=== PATIENT | male | born 2005 | race Caucasian/White ===

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

== ENCOUNTER 2024-07-29 16:26 | Emergency (ER) | payer OTHER, BC ==
[2024-07-29 17:17] VITALS: TEMP 97.9
[2024-07-29] MEDS ORDERED: XYLOCAINE VISCOUS 2% 15 ML CUP ONE (17:24)
[2024-07-29] MEDS ORDERED: PROTONIX 40 MG IV IV ONE (17:24)
[2024-07-29] MEDS ORDERED: Sodium Chloride 0.9% 1000 ML 1,000 ML ONE (17:25)
[2024-07-29] MEDS ORDERED: MAALOX ES 30 ML UNIT DOSE ONE (17:25)
[2024-07-29] MEDS: GI COCKTAIL 45 ML (Maalox/Lidocaine) PO ONE (17:29)
[2024-07-29] MEDS: PROTONIX 40 MG IV IV ONE (17:29)
[2024-07-29] MEDS: Sodium Chloride 0.9% 1000 ML 1,000 ML IV STA (17:29)
[2024-07-29 17:47] LABS: Absolute Neutrophil Ct (ANC) 7.31 x10^3/uL (1.78-5.38); BASOPHIL % 0.3 % (0.2-1.2); Basophil (Absolute #) 0.03 x10^3/uL (0.01-0.08); Eosinophil % 0.3 % (0.8-7.0); Eosinophil (Absolute #) 0.03 x10^3/uL (0.04-0.54); Hematocrit 46.2 % (40.1-51.0); Hemoglobin 16.1 g/dL (13.7-17.5); IMMATURE GRAN # 0.03 x10^3u/L (0.001-0.031); IMMATURE GRAN % 0.3 % (0.001-0.429); Lymphocytes % 11.8 % (21.8-53.1); Mean Cell Volume 89.4 fL (79.0-92.2); Mean Corpuscular Hemoglobin 31.1 pg (25.7-32.2); Mean Corpuscular Hgb Concent. 34.8 g/dL (32.3-36.5); Mean Platelet Volume 9.3 fL (9.4-12.4); Monocyte (Absolute #) 0.81 x10^3/uL (0.30-0.82); Monocytes % 8.7 % (5.3-12.2); Neutrophil % 78.6 % (34.0-67.9); Platelet Count 309 x10^3/uL (163-337); Red Blood Count 5.17 x10^6/uL (4.63-6.08); Red Cell Distribution Width 12.7 % (11.6-14.4); White Blood Count 9.3 x10^3/uL (4.23-9.07)
--- NOTE | 2024-07-29 18:09 | ERPHSYRPT ---
<MAYUR HESS - Last Filed: 07/29/24 18:05> - History of Present Illness Time Seen by Provider: 07/29/24 16:33 Historian: patient, family Exam Limitations: no limitations Patient Subjective Stated Complaint: Tachycardia Triage Nursing Assessment: Patient ambulated back to ED and transferred self to bed. Patient A+O X 3. Patient's skin pink, warm and dry. 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 He stated he could feel his heart beating fast patient was told to go to EMT for assessment when he started walking you became lightheaded and SOB then sat 45 minutes. Patient states he was getting very dizzy and kept wanting to pass out. Patient states he has chest pain to mid sternum into right side of ribs and mid back pain constant stabbing 6/10. Physician History: 19-year-old with history of heavy caffeine use and moderate alcohol consumption until a week ago when he started to feel dizzy lightheaded, tachycardia. He was evaluated at [facility] with negative workup, was prescribed Nexium but patient continued to have symptoms. Patient reports he gets short of breath with activity and also having cough and noticed some blood earlier today. Pain is substernal moderate intensity, continuous with no significant aggravating or relieving factors. Denies any fever or chills. Patient was also taking testosterone shots for building muscle mass. Allergies/Adverse Reactions: No Known Drug Allergies Allergy (Verified 07/29/24 16:40) Home Medications: Sertraline HCl 50 mg [Zoloft 50 mg Tablet] 1 tab PO DAILY 07/29/24 [History] Hx Influenza Vaccination/Date Given: No Hx Pneumococcal Vaccination/Date Given: No Travel Risk - International Travel Have you traveled outside of the country in past 3 weeks: No - Emerging Infectious Disease Are you exhibiting symptoms associated with any current EIDs: No - Review of Systems Constitutional: Fatigue, Weakness Eyes: No Symptoms Ears, Nose, & Throat: No Symptoms Respiratory: Cough, Dyspnea, Dyspnea on Exertion (CRUZ) Cardiac: Chest Pain, Palpitations Abdominal/Gastrointestinal: No Symptoms Genitourinary Symptoms: No Symptoms Skin: No Symptoms Neurological: No Symptoms Psychological: Anxiety Hematologic/Lymphatic: No Symptoms Immunological/Allergic: No Symptoms - Past Medical History Pertinent Past Medical History: Yes Neurological History: No Pertinent History Cardiac History: No Pertinent History Respiratory History: No Pertinent History Endocrine Medical History: No Pertinent History Musculoskeletal History: No Pertinent History - Past Surgical History Past Surgical History: No - Social History Smoking Status: Never smoker Exposure to second hand smoke: Yes Drug Use: none Patient Lives Alone: No - Social Determinants of Health Will the patient participate in the screening: Yes Do you worry about a steady place to live?: No Do you have any problems with any of the following?: No known problems In the past 12 months,have you had to go without utilities?: No Transportation Issues: No Has anyone in your support network made you feel unsafe?: No Have you or anyone in your house had to go without enough: No - Physical Exam General Appearance: no apparent distress, alert, anxiety Eye Exam: PERRL/EOMI Ears, Nose, Throat Exam: normal ENT inspection Neck Exam: normal inspection, non-tender, supple, full range of motion Respiratory Exam: normal breath sounds, lungs clear Cardiovascular Exam: regular rate/rhythm, normal heart sounds Gastrointestinal/Abdomen Exam: soft, normal bowel sounds, No tenderness Back Exam: normal inspection, normal range of motion Extremity Exam: normal inspection, normal range of motion Neurologic Exam: alert, oriented x 3, cooperative, director hedis II-XII nml as tested, nml cerebellar function, nml station & gait, sensation nml, No normal mood/affect, No motor deficits Skin Exam: normal color SpO2 Interpretation: normal SpO2: 100 O2 Delivery: Room Air - Course EKG Interpreted by Me: RATE, Sinus Rhythm, NORMAL AXIS, NORMAL INTERVALS, NORMAL QRS - Departure Clinical Impression: Dizziness, SOB (shortness of breath) Condition: Stable Referrals: LILLIAN BLAIR [employer]ET[employer] SPECIALIST [Primary Care Provider] - Follow up/PCP as directed Additional Instructions: Discharge/Care Plan ESDRAS KATZ was seen on 07/29/24 in the Emergency Room. The patient was counseled regarding Diagnosis,Lab results, Imaging studies, need for follow up and when to return to the Emergency Room. Prescriptions given: Discharge Note I have spoken with the patient and/or caregivers. I have explained the patient's condition, diagnosis and treatment plan based on the information available to me at this time. I have answered the patient's and/or caregiver's questions and addressed any concerns. The patient and/or caregivers have as good understanding of the patient's diagnosis, condition and treatment plan as can be expected at this point. The vital signs have been stable. The patient's condition is stable and appropriate for discharge from the emergency department. The patient will pursue further outpatient evaluation with the primary care physician or other designated or consulting physician as outlined in the dischar ge instructions. The patient and/or caregivers are agreeable to this plan of care and follow-up instructions have been explained in detail. The patient and/or caregivers have received these instruction. The patient/and or caregivers are aware that any significant change in condition or worsening of symptoms should prompt an immediate return to this or the closest emergency department or call 911. Forms: Work/School Release Form <MARCO A SEQUEIRA - Last Filed: 07/29/24 20:34> - History of Present Illness Aspirin Treatment Today: no aspirin today - Nursing Vital Signs Nursing Vital Signs: Initial Vital Signs Temperature 97.9 F 07/29/24 16:54 Pulse Rate 95 H 07/29/24 16:54 Respiratory Rate 20 07/29/24 16:54 Blood Pressure 146/97 07/29/24 16:54 O2 Sat by Pulse Oximetry 100 07/29/24 16:54 Pain Scale Pain Intensity 7 - Course Nursing assessment & vital signs reviewed: Yes - CT Exams Abdomen/Pelvis CT Interpretation: Tele-radiologist Report (No acute findings) Chest CT Interpretation: Tele-radiologist Report (No acute findings) Ordered Tests: Active Orders 24 hr Category Date Time Status [place] Program Coordinator STAT Care 07/29/24 17:15 Active EKG-ER Only STAT Care 07/29/24 17:15 Active IV Insertion STAT Care 07/29/24 17:15 Active ABDOMEN AND PELVIS W/0 CONTRAS [CT] Stat Exams 07/29/24 19:12 Taken CHEST WITH CONTRAST [CT] Stat Exams 07/29/24 17:16 Taken CBC W DIFF Stat Lab 07/29/24 17:30 Completed CK-Creatinine Phosphokinase Stat Lab 07/29/24 17:30 Completed CMP Stat Lab 07/29/24 17:30 Completed LIPASE Stat Lab 07/29/24 Completed MAG [MAGNESIUM] Stat Lab 07/29/24 Completed NT PRO BNPII Stat Lab 07/29/24 17:30 Completed TROPONIN Q4H Lab 07/29/24 17:30 Completed TROPONIN Q4H Lab 07/29/24 21:15 Ordered TROPONIN Q4H Lab 07/30/24 01:15 Ordered TSH [TSH, 3RD Generation] Stat Lab 07/29/24 17:30 Completed Urine Triage Profile Stat Lab 07/29/24 17:21 Completed Medication Summary Discontinued Medications Generic Name Dose Route Start Last Admin Trade Name Bebeto PRN Reason Stop Dose Admin Al Hydrox/Mg Hydrox/Simethicone Confirm 07/29/24 17:25 Mag Hydrox/Al Hydrox/Simeth 30 Ml Udcup Administered 07/29/24 17:26 Dose 30 ml .ROUTE .STK-MED ONE Sodium Chloride 1,000 mls @ 999 mls/hr 07/29/24 17:15 07/29/24 18:30 Sodium Chloride 0.9% 1000 Ml IV 07/29/24 18:15 Infused .Q1H1M STA Infusion Sodium Chloride Confirm 07/29/24 17:25 Sodium Chloride 0.9% 1000 Ml Administered 07/29/24 17:26 Dose 1,000 mls @ ud .ROUTE .STK-MED ONE Lidocaine HCl Confirm 07/29/24 17:24 Lidocaine Hcl 2% Viscous 15 Ml Udcup Administered 07/29/24 17:25 Dose 15 ml .ROUTE .STK-MED ONE Magnesium Hydroxide 45 ml 07/29/24 17:16 07/29/24 17:29 Mag Hydrx/Alum Hyd/Simeth/Lido 45 Ml Bottle PO 07/29/24 17:17 45 ml STAT ONE Administration Morphine Sulfate 4 mg 07/29/24 19:19 07/29/24 19:20 Morphine Sulfate 4 Mg/Ml Injection IV 07/29/24 19:20 4 mg STAT ONE Administration Morphine Sulfate Confirm 07/29/24 19:19 Morphine Sulfate 4 Mg/Ml Injection Administered 07/29/24 19:20 Dose 4 mg .ROUTE .STK-MED ONE Ondansetron HCl 4 mg 07/29/24 19:19 07/29/24 19:20 Ondansetron Hcl 4 Mg/2 Ml Vial IV 07/29/24 19:20 4 mg STAT ONE Administration Ondansetron HCl Confirm 07/29/24 19:19 Ondansetron Hcl 4 Mg/2 Ml Vial Administered 07/29/24 19:20 Dose 4 mg .ROUTE .STK-MED ONE Pantoprazole Sodium 40 mg 07/29/24 17:16 07/29/24 17:29 Pantoprazole 40 Mg Vial IV 07/29/24 17:17 40 mg STAT ONE Administration Pantoprazole Sodium Confirm 07/29/24 17:24 Pantoprazole 40 Mg Vial Administered 07/29/24 17:25 Dose 40 mg IV .[facility] ONE Lab/Rad Data: Laboratory Result Diagrams 07/29/24 17:30 07/29/24 17:30 Laboratory Results 07/29/24 07/29/24 07/29/24 Range/Units Unknown 17:30 17:30 WBC (4.23-9.07) x10^3/uL RBC (4.63-6.08) x10^6/uL Hgb (13.7-17.5) g/dL Hct (40.1-51.0) % MCV (79.0-92.2) fL MCH (25.7-32.2) pg MCHC (32.3-36.5) g/dL RDW (11.6-14.4) % Plt Count (163-337) x10^3/uL MPV (9.4-12.4) fL Gran % (34.0-67.9) % Immature Gran % (Auto) (0.001-0.429) % Nucleat RBC Rel Count (0.00-0.2) % Eos # (Auto) (0.04-0.54) x10^3/uL Immature Gran # (Auto) (0.001-0.031) x10^3u/L Absolute Lymphs (auto) (1.32-3.57) x10^3/uL Absolute Monos (auto) (0.30-0.82) x10^3/uL Absolute Nucleated RBC (0.00-0.012) x10^3u/L Lymphocytes % (21.8-53.1) % Monocytes % (5.3-12.2) % Eosinophils % (0.8-7.0) % Basophils % (0.2-1.2) % Absolute Granulocytes (1.78-5.38) x10^3/uL Basophils # (0.01-0.08) x10^3/uL Sodium (135-145) mmol/L Potassium (3.5-5.1) mmol/L Chloride (98-107) mmol/L Carbon Dioxide (22-30) mmol/L Anion Gap (5-15) MEQ/L BUN (9-20) mg/dL Creatinine (0.66-1.25) mg/dL Estimated GFR ML/MIN Glucose (74-106) mg/dL Calcium (8.4-10.2) mg/dL Magnesium 2.0 (1.6-2.3) mg/dL Total Bilirubin (0.2-1.3) mg/dL AST (17-59) U/L ALT (0-50) U/L Alkaline Phosphatase (38-126) U/L Creatine Kinase (55-170) U/L Troponin I (0.000-0.033) ng/mL NT-Pro-B Natriuret Pep < 20.0 (<300) pg/mL Serum Total Protein (6.3-8.2) g/dL Albumin (3.5-5.0) g/dL Lipase 148 (23-300) U/L TSH 3rd Generation 1.122 (0.470-4.680) mIU/L Urine Opiates Level (NEGATIVE) Ur Methadone (NEGATIVE) Urine Barbiturates (NEGATIVE) Ur Phencyclidine (PCP) (NEGATIVE) Urine Amphetamine (NEGATIVE) U Benzodiazepine Level (NEGATIVE) Urine Cocaine (NEGATIVE) Urine Marijuana (THC) (NEGATIVE) 07/29/24 07/29/24 07/29/24 Range/Units 17:30 17:30 17:21 WBC 9.3 H (4.23-9.07) x10^3/uL RBC 5.17 (4.63-6.08) x10^6/uL Hgb 16.1 (13.7-17.5) g/dL Hct 46.2 (40.1-51.0) % MCV 89.4 (79.0-92.2) fL MCH 31.1 (25.7-32.2) pg MCHC 34.8 (32.3-36.5) g/dL RDW 12.7 (11.6-14.4) % Plt Count 309 (163-337) x10^3/uL MPV 9.3 L (9.4-12.4) fL Gran % 78.6 H (34.0-67.9) % Immature Gran % (Auto) 0.3 (0.001-0.429) % Nucleat RBC Rel Count 0.0 (0.00-0.2) % Eos # (Auto) 0.03 L (0.04-0.54) x10^3/uL Immature Gran # (Auto) 0.03 (0.001-0.031) x10^3u/L Absolute Lymphs (auto) 1.10 L (1.32-3.57) x10^3/uL Absolute Monos (auto) 0.81 (0.30-0.82) x10^3/uL Absolute Nucleated RBC 0.00 (0.00-0.012) x10^3u/L Lymphocytes % 11.8 L (21.8-53.1) % Monocytes % 8.7 (5.3-12.2) % Eosinophils % 0.3 L (0.8-7.0) % Basophils % 0.3 (0.2-1.2) % Absolute Granulocytes 7.31 H (1.78-5.38) x10^3/uL Basophils # 0.03 (0.01-0.08) x10^3/uL Sodium 139 (135-145) mmol/L Potassium 3.9 (3.5-5.1) mmol/L Chloride 104 (98-107) mmol/L Carbon Dioxide 22 (22-30) mmol/L Anion Gap 16.9 H (5-15) MEQ/L BUN 18 (9-20) mg/dL Creatinine 1.24 (0.66-1.25) mg/dL Estimated GFR 84.8 ML/MIN Glucose 96 (74-106) mg/dL Calcium 9.2 (8.4-10.2) mg/dL Magnesium (1.6-2.3) mg/dL Total Bilirubin 0.60 (0.2-1.3) mg/dL AST 34 (17-59) U/L ALT 25 (0-50) U/L Alkaline Phosphatase 72 (38-126) U/L Creatine Kinase 312 H (55-170) U/L Troponin I < 0.012 (0.000-0.033) ng/mL NT-Pro-B Natriuret Pep (<300) pg/mL Serum Total Protein 8.1 (6.3-8.2) g/dL Albumin 4.9 (3.5-5.0) g/dL Lipase (23-300) U/L TSH 3rd Generation (0.470-4.680) mIU/L Urine Opiates Level NEGATIVE (NEGATIVE) Ur Methadone NEGATIVE (NEGATIVE) Urine Barbiturates NEGATIVE (NEGATIVE) Ur Phencyclidine (PCP) NEGATIVE (NEGATIVE) Urine Amphetamine NEGATIVE (NEGATIVE) U Benzodiazepine Level NEGATIVE (NEGATIVE) Urine Cocaine NEGATIVE (NEGATIVE) Urine Marijuana (THC) NEGATIVE (NEGATIVE) - Progress Progress: improved Air Movement: good Progress Note: 19-year-old male presents to emergency department for evaluation of shortness of breath dizziness. Patient evaluated by Dr. Hess. Workup completed. Patient endorsed to Dr. Sequeira at approximately [address] Sequeira advised to follow-up in pending CAT scan and to discharge if negative. CAT scan chest was ordered by Dr. Hess and was negative. At the change of shift I evaluated patient. Patient expressed some discomfort at the right upper quadrant so I added a CT abdomen pelvis. That resulted as negative as well. Patient resting comfortably. Vital stable. No active pain. Patient states he is ready for discharge. He agrees to follow-up with his primary care doctor within 48 hours for reevaluation. Work note provided. Patient voices no other complaints or concerns at this time. Portions of this note were created with voice recognition technology. There may be grammatical, spelling, punctuation or sound alike errors Complexity of problem addressed is moderate acute complicated. No critical care time. Complex of data reviewed and analyzed is moderate. Test ordered chest reviewed results analyzed and correlated clinically with history and physical exam. Risk of complication and or risk of morbidity/mortality of patient management is low. Vital stable. Time spent to discharge patient approximately 15 minutes. Plan of care established for shared decision making. No social determinants of health present to be follow-up. Portions of this note were created with voice recognition technology. There may be grammatical, spelling, punctuation or sound alike errors 07/29/24 20:31 Blood Culture(s) Obtained: No Antibiotics given: No Counseled pt/family regarding: lab results, diagnosis, need for follow-up, rad results - Departure Departure Disposition: Home Critical Care Time: No
[2024-07-29 18:12] LABS: Amphetamine,Urine NEGATIVE (NEGATIVE); Barbiturate,Urine NEGATIVE (NEGATIVE); Benzodiazepine,Urine NEGATIVE (NEGATIVE); Cocaine,Urine NEGATIVE (NEGATIVE); Methadone,Urine NEGATIVE (NEGATIVE); Opiate,Urine NEGATIVE (NEGATIVE); PCP,Urine NEGATIVE (NEGATIVE); THC,Urine NEGATIVE (NEGATIVE)
[2024-07-29 18:20] LABS: ALBUMIN 4.9 g/dL (3.5-5.0); ALKALINE PHOSPHATASE 72 U/L (38-126); ANION GAP 16.9 MEQ/L (5-15); BLOOD UREA NITROGEN 18 mg/dL (9-20); CHLORIDE 104 mmol/L (98-107); CK-Creatinine Phosphokinase 312 U/L (55-170); Calcium 9.2 mg/dL (8.4-10.2); Carbon Dioxide 22 mmol/L (22-30); Creatinine 1 1.24 mg/dL (0.66-1.25); EST GLOMERULAR FILTRATION RATE 84.8 ML/MIN; Glucose 96 mg/dL (74-106); Potassium 3.9 mmol/L (3.5-5.1); SGOT/AST 34 U/L (17-59); SGPT/ALT 25 U/L (0-50); SODIUM 139 mmol/L (135-145); TROPONIN < 0.012 ng/mL (0.000-0.033); Total Protein 8.1 g/dL (6.3-8.2)
[2024-07-29] MEDS ORDERED: Zofran 4 MG/2 ML VIAL ONE (19:19)
[2024-07-29] MEDS ORDERED: MORPHINE SULFATE 4 MG INJ ONE (19:19)
[2024-07-29] MEDS: MORPHINE SULFATE 4 MG INJ IV ONE (19:20)
[2024-07-29] MEDS: Zofran 4 MG/2 ML VIAL IV ONE (19:20)
[2024-07-29 20:17] VITALS: O2SAT 98
[2024-07-29 20:33] VITALS: BP 131/80; PULSE 74; RESP 17
--- NOTE | 2024-07-30 08:38 | XRAY ---
Indication: Chest pain. Hemoptysis. Multiple contiguous axial images obtained through the chest using 80 cc Isovue 370 contrast and PE protocol. Comparison: None Suboptimal opacification pulmonary arteries. No obvious pulmonary embolus. Heart not enlarged. Aorta is normal in course and caliber. Small subcarinal and right hilar calcified nodes. No pathologic mediastinal/hilar lymphadenopathy. Lungs inflated and clear. Bony thorax intact. CT abdomen/pelvis reported separately. Impression: Negative pulmonary embolus. No acute cardiopulmonary abnormalities. Incidental old granulomatous disease.
--- NOTE | 2024-07-30 08:42 | XRAY ---
Indication: Right upper quadrant abdominal pain. Multiple contiguous axial images obtained through the abdomen and pelvis without contrast. Comparison: None CT PE exam reported separately. Noncontrasted stomach and bowel loops appear nonobstructed. Appendix not visualized. Mild scattered colonic fecal debris greatest and right hemicolon. Contrast in the system from same day CT pulmonary embolus exam. No free fluid/air. Remaining liver, gallbladder, pancreas, spleen, adrenal glands, kidneys, ureters, bladder, and aorta are unremarkable. Osseous structures intact. No ventral or inguinal hernias. Impression: Mild fecal stasis. Remaining CT abdomen/pelvis without contrast exam is negative.
== END 2024-07-29 20:39 | disposition home or self-care (01) ==
LOC: ED 16:26
DX: R42 Dizziness and giddiness (principal); R06.02 Shortness of breath; R00.0 Tachycardia, unspecified; R05.1 Acute cough; R07.9 Chest pain, unspecified; Z79.899 Other long term (current) drug therapy
CPT/HCPCS: 36000; 36415; 71260; 74176; 80053; 80307; 82550; 83690; 83735; 83880; 84443; 84484; 85025; 93005; 93041; 96374; 96375; 99284; J2270; J2405; A9270-GY

== ENCOUNTER 2024-08-26 06:52 | Day surgery (SDC) | payer OTHER, BC ==
[2024-08-26] MEDS: Lactated Ringers 1,000 ML IV SCH (07:00)
[2024-08-26 07:16] VITALS: RESP 18
[2024-08-26] MEDS ORDERED: Versed 2 MG/2 ML Injection ONE (08:18)
[2024-08-26] MEDS ORDERED: Xylocaine-Mpf 2% 5 Ml Vial ONE (08:21)
[2024-08-26] MEDS ORDERED: DIPRIVAN 200 MG/20 ML IV ONE ×2 (08:21→08:32)
[2024-08-26 09:03] VITALS: O2SAT 98
[2024-08-26 09:13] VITALS: BP 118/94; PULSE 64; TEMP 97.7
--- NOTE | 2024-08-28 10:27 | OP ---
SURGERY DATE/TIME: 08/26/2024 [id number] PREOPERATIVE DIAGNOSES: 1) Hematochezia. 2) Gastroesophageal reflux disease. POSTOPERATIVE DIAGNOSES: 1) Normal esophagogastroduodenoscopy. 2) Normal colon. PROCEDURES: 1) Esophagogastroduodenoscopy. 2) Colonoscopy. SURGEON: Monty Chong MD ANESTHESIA: MAC, by Juliano Ellis CRNA ESTIMATED BLOOD LOSS: None. SPECIMENS: None. DESCRIPTION OF PROCEDURE AND FINDINGS: After informed written consent was obtained, the patient was taken to the endoscopy suite. He was placed in the left lateral decubitus position and a bite block was inserted. The anesthetic was titrated to the desired level of consciousness. The endoscope was inserted in the posterior oropharynx. Under direct visualization, the esophagus was traversed. The mucosa of the esophagus appeared normal, upon entry into the stomach, there was normal rugae of the gastric mucosa. No obvious areas of bleeding, ulceration, or any changes were seen. Pylorus was traversed, but the duodenum had a normal appearance as well. Upon withdrawal again, all mucosal structures appeared normal. Scope was removed, and the scopes were switched. Digital rectal exam showed normal sphincter tone and no internal lesions. The scope was inserted in the rectum, and sequentially the entire colonic mucosa was traversed. Level of the cecum was reached and verified under direct visualization of the ileocecal valve. Upon withdrawal, careful mucosal inspection revealed no colonic mucosal abnormalities. There were no areas of bleeding, no ulcerations, no polyps or lesions were encountered. Prior to withdrawal, retroflexion was performed and showed no internal lesions. The scope was removed, and patient was transferred to the recovery room in good condition.
== END 2024-08-26 09:15 | disposition home or self-care (01) ==
LOC: SDC 06:52
PROVIDERS: ATTEND Family Medicine
DX: K92.1 Melena (principal); K21.9 Gastro-esophageal reflux disease without esophagitis
CPT/HCPCS: J2250; J2704